=== PATIENT | male | born 1995 | race Caucasian/White ===

== ENCOUNTER 2022-04-18 04:57 | Inpatient (IN) | payer OTHER ==
[2022-04-18] MEDS ORDERED: ONDANSETRON 4 MG/2 ML VIAL IVPB ONE (05:55)
[2022-04-18] MEDS ORDERED: SODIUM CHLORIDE 0.9% 500 ML INFUS.BAG IV ONE (05:55)
[2022-04-18] MEDS ORDERED: FAMOTIDINE 20 MG/50 ML IVPB 20 MG/50 ML MG IVPB ONE ×2 (05:55→06:43)
[2022-04-18] MEDS ORDERED: ONDANSETRON 4 MG/2 ML VIAL ONE ×2 (06:43→09:08)
[2022-04-18 07:23] LABS: BASO % 1.2 % (0-2.0); EOS % 0.1 % (0-4.5); HEMATOCRIT 48.3 % (35.4-49); LYMPH % 18.4 % (8-40); MCH 27.6 pg (25.7-33.7); MCHC 33.2 g/dl (32.0-35.9); MEAN CELL VOLUME 83.3 fl (80-96); MONO % 5.2 % (3.8-10.2); NEUT % 75.1 % (42.8-82.8); PLATELET COUNT 155 10^3/uL (134-434); RBC 5.79 M/mm3 (4.00-5.60); RDW 13.4 % (11.9-15.9); WHITE BLOOD COUNT 4.9 K/mm3 (4.0-10.0)
[2022-04-18 07:30] LABS: CHLORIDE 95 mmol/L (98-107); SODIUM 134 mmol/L (136-145)
[2022-04-18 07:32] LABS: CALCIUM 9.2 mg/dL (8.5-10.1)
[2022-04-18 07:33] LABS: BLOOD UREA NITROGEN 20.4 mg/dL (7-18); CO2 29 mmol/L (21-32); GLUCOSE,RANDOM 140 mg/dL (74-106); LIPASE 57 U/L (73-393); MAGNESIUM 2.4 mg/dL (1.8-2.4)
[2022-04-18 07:35] LABS: CREATININE 0.8 mg/dL (0.55-1.3); SGOT/AST 78 U/L (15-37)
[2022-04-18 07:37] LABS: BILIRUBIN,TOTAL 0.5 mg/dL (0.2-1); TOT PROT 8.8 g/dl (6.4-8.2)
[2022-04-18 07:38] LABS: ALK PHOS 78 U/L (45-117)
[2022-04-18 07:52] LABS: ANION GAP 10 MMOL/L (8-16); SGPT/ALT 38 U/L (13-61)
[2022-04-18] MEDS ORDERED: ONDANSETRON 4 MG/2 ML VIAL IVPUSH ONE (08:31)
[2022-04-18] MEDS ORDERED: OSELTAMIVIR PHOSPHATE 6 MG/1 ML PO ONE (08:33)
[2022-04-18 08:42] LABS: CALCIUM 8.9 mg/dL (8.5-10.1)
[2022-04-18 08:43] LABS: BLOOD UREA NITROGEN 20.7 mg/dL (7-18)
[2022-04-18 08:46] LABS: CREATININE 0.8 mg/dL (0.55-1.3)
[2022-04-18] MEDS ORDERED: OSELTAMIVIR PHOSPHATE 75 MG CAPSULE ONE ×3 (09:08→12:35)
[2022-04-18] MEDS ORDERED: ONDANSETRON 4 MG/2 ML VIAL IVPUSH PRN (09:23)
[2022-04-18] MEDS ORDERED: LACTATED RINGERS SOLUTION 1,000 ML IV SCH (09:30)
[2022-04-18 11:00] LABS: ALBUMIN 3.8 g/dl (3.4-5.0)
[2022-04-18 11:04] LABS: TOT PROT 7.5 g/dl (6.4-8.2)
[2022-04-18 11:05] LABS: BILIRUBIN,TOTAL 0.4 mg/dL (0.2-1)
[2022-04-18] MEDS ORDERED: ENOXAPARIN NA (PORCINE) 40 MG/0.4 ML DISP.SYRIN SQ ONE (12:35)
[2022-04-18] MEDS: LACTATED RINGERS SOLUTION 1,000 ML/1,000 ML INFUS.BAG IV SCH ×2 (12:44→22:31)
[2022-04-18] MEDS: ENOXAPARIN NA (PORCINE) 40 MG/0.4 ML DISP.SYRIN SQ SCH (12:44)
[2022-04-18 16:35] LABS: EPI CELLS >36 /uL (0-25.1); HYALINE CASTS 4 /uL (0-3.1); URINE APPEARANCE CLEAR; URINE BACTERIA 9 /uL (0-1359); URINE BILIRUBIN NEGATIVE (NEGATIVE); URINE COLOR YELLOW; URINE GLUCOSE (UA) NEGATIVE (NEGATIVE); URINE KETONE 1+ (NEGATIVE); URINE LEUK ESTERASE NEGATIVE (NEGATIVE); URINE NITRITE NEGATIVE (NEGATIVE); URINE PROTEIN 1+ (NEGATIVE); URINE UROBILINOGEN 0.2 mg/dL (0.2-1.0); URINE WBC 36 /uL (0-25.8)
[2022-04-18 16:57] LABS: URINE RBC 159.8 /uL (0-23.9)
[2022-04-19] MEDS: OSELTAMIVIR PHOSPHATE 75 MG CAPSULE PO SCH ×3 (04:29→22:16)
[2022-04-19] MEDS: ENOXAPARIN NA (PORCINE) 40 MG/0.4 ML DISP.SYRIN SQ SCH (10:03)
[2022-04-19] MEDS: LACTATED RINGERS SOLUTION 1,000 ML/1,000 ML INFUS.BAG IV SCH (10:03)
[2022-04-19 12:04] LABS: BASO % 0.4 % (0-2.0); HEMATOCRIT 40.5 % (35.4-49); HEMOGLOBIN 13.2 GM/dL (11.7-16.9); LYMPH % 27.9 % (8-40); MCH 27.4 pg (25.7-33.7); MCHC 32.6 g/dl (32.0-35.9); MEAN CELL VOLUME 83.9 fl (80-96); MEAN PLT VOLUME 9.1 fl (7.5-11.1); MONO % 8.6 % (3.8-10.2); NEUT % 62.1 % (42.8-82.8); PLATELET COUNT 160 10^3/uL (134-434); RBC 4.83 M/mm3 (4.00-5.60); RDW 13.6 % (11.9-15.9); WHITE BLOOD COUNT 6.7 K/mm3 (4.0-10.0)
[2022-04-19 12:37] LABS: PHOSPHOROUS 3.2 mg/dL (2.5-4.9)
[2022-04-19] MEDS: risperiDONE 0.5 MG TABLET PO SCH ×2 (12:37→22:16)
[2022-04-19 16:11] VITALS: RESP 18
[2022-04-19] MEDS ORDERED: LACTATED RINGERS SOLUTION 1,000 ML/1,000 ML INFUS.BAG IV SCH (17:15)
[2022-04-20] MEDS: risperiDONE 0.5 MG TABLET PO SCH ×2 (09:39→21:32)
[2022-04-20] MEDS: OSELTAMIVIR PHOSPHATE 75 MG CAPSULE PO SCH ×2 (09:39→21:32)
[2022-04-20] MEDS: ENOXAPARIN NA (PORCINE) 40 MG/0.4 ML DISP.SYRIN SQ SCH (09:39)
[2022-04-20 13:17] LABS: HEMATOCRIT 40.9 % (35.4-49); HEMOGLOBIN 13.5 GM/dL (11.7-16.9); MCH 27.7 pg (25.7-33.7); MCHC 32.9 g/dl (32.0-35.9); MEAN CELL VOLUME 84.1 fl (80-96); MEAN PLT VOLUME 8.9 fl (7.5-11.1); PLATELET COUNT 169 10^3/uL (134-434); RBC 4.86 M/mm3 (4.00-5.60); RDW 13.4 % (11.9-15.9); WHITE BLOOD COUNT 5.9 K/mm3 (4.0-10.0)
[2022-04-20 13:27] LABS: BLOOD UREA NITROGEN 10.6 mg/dL (7-18)
[2022-04-20 13:28] LABS: ALBUMIN 3.2 g/dl (3.4-5.0)
[2022-04-20 13:30] LABS: PHOSPHOROUS 3.2 mg/dL (2.5-4.9)
[2022-04-20 13:31] LABS: CALCIUM 8.3 mg/dL (8.5-10.1); CREATININE 0.7 mg/dL (0.55-1.3)
[2022-04-20 13:32] LABS: BILIRUBIN,TOTAL 0.7 mg/dL (0.2-1); TOT PROT 6.4 g/dl (6.4-8.2)
[2022-04-20] MEDS ORDERED: AZITHROMYCIN 250 MG TABLET PO ONE (18:32)
[2022-04-20] MEDS: CEFTRIAXONE 1 GM in DEXTROSE 5%-WATER - 50 ML IVPB SCH (19:05)
[2022-04-21] MEDS: risperiDONE 0.5 MG TABLET PO SCH ×2 (09:36→21:57)
[2022-04-21] MEDS: OSELTAMIVIR PHOSPHATE 75 MG CAPSULE PO SCH ×2 (09:37→21:57)
[2022-04-21] MEDS: ENOXAPARIN NA (PORCINE) 40 MG/0.4 ML DISP.SYRIN SQ SCH (09:42)
[2022-04-21 11:25] LABS: HEMATOCRIT 42.3 % (35.4-49); MCH 27.6 pg (25.7-33.7); MCHC 33.1 g/dl (32.0-35.9); MEAN CELL VOLUME 83.4 fl (80-96); PLATELET COUNT 160 10^3/uL (134-434); RBC 5.07 M/mm3 (4.00-5.60); RDW 13.3 % (11.9-15.9); WHITE BLOOD COUNT 4.3 K/mm3 (4.0-10.0)
[2022-04-21 11:51] LABS: CALCIUM 8.8 mg/dL (8.5-10.1)
[2022-04-21 11:52] LABS: ALBUMIN 3.2 g/dl (3.4-5.0); BLOOD UREA NITROGEN 11.5 mg/dL (7-18); MAGNESIUM 2.2 mg/dL (1.8-2.4)
[2022-04-21 11:55] LABS: CREATININE 0.7 mg/dL (0.55-1.3); PHOSPHOROUS 3.2 mg/dL (2.5-4.9)
[2022-04-21 11:56] LABS: BILIRUBIN,TOTAL 0.5 mg/dL (0.2-1); TOT PROT 6.6 g/dl (6.4-8.2)
[2022-04-21 15:36] VITALS: BMI 15.4
[2022-04-21] MEDS: CEFTRIAXONE 1 GM in DEXTROSE 5%-WATER - 50 ML IVPB SCH (17:51)
[2022-04-21] MEDS ORDERED: AZITHROMYCIN 250 MG TABLET PO SCH (18:00)
[2022-04-22] MEDS: risperiDONE 0.5 MG TABLET PO SCH (09:19)
[2022-04-22] MEDS: ENOXAPARIN NA (PORCINE) 40 MG/0.4 ML DISP.SYRIN SQ SCH (09:19)
[2022-04-22] MEDS: OSELTAMIVIR PHOSPHATE 75 MG CAPSULE PO SCH (09:19)
[2022-04-22 12:26] LABS: HEMATOCRIT 44.6 % (35.4-49); HEMOGLOBIN 14.7 GM/dL (11.7-16.9); MCH 27.5 pg (25.7-33.7); MCHC 32.9 g/dl (32.0-35.9); MEAN CELL VOLUME 83.7 fl (80-96); MEAN PLT VOLUME 8.9 fl (7.5-11.1); PLATELET COUNT 175 10^3/uL (134-434); RBC 5.33 M/mm3 (4.00-5.60); RDW 13.2 % (11.9-15.9); WHITE BLOOD COUNT 4.2 K/mm3 (4.0-10.0)
[2022-04-22 12:49] LABS: CALCIUM 8.9 mg/dL (8.5-10.1); MAGNESIUM 2.2 mg/dL (1.8-2.4)
[2022-04-22 12:56] LABS: CREATININE 0.7 mg/dL (0.55-1.3)
[2022-04-22] MEDS ORDERED: POLYETHYLENE GLYCOL (HEALTHYLAX) 3350 17 GM PACKET PO ONE (13:15)
[2022-04-22 14:23] VITALS: BP 89/52; PULSE 86; TEMP 97.1
[2022-04-22] MEDS ORDERED: CEFTRIAXONE 1 GM in DEXTROSE 5%-WATER - 50 ML IVPB ONE (14:30)
== END 2022-04-22 16:45 | disposition home or self-care (01) | DRG 139 ==
LOC: JER 04:57 → JERBED 08:32 → J5S 19:56 → OBSVTOIN 04-19 13:46
PROVIDERS: ADMIT Internal Medicine; ATTEND Internal Medicine
DX: J11.00 Influenza due to unidentified influenza virus with unspecified type of pneumonia (principal); R11.2 Nausea with vomiting, unspecified; F84.0 Autistic disorder; R64 Cachexia; Z68.1 Body mass index [BMI] 19.9 or less, adult; E44.0 Moderate protein-calorie malnutrition; K56.7 Ileus, unspecified
CPT/HCPCS: 0241U-QW; 36415; 71045-TC-FY; 74018-TC-FY; 74176-TC; 80048; 80053; 81003; 83690; 83735; 84100; 85025; 85027; 93005; 93010; 99285-25; G0378